=== PATIENT | male | born 1950 | race Caucasian/White ===

== ENCOUNTER 2017-04-28 06:00 | Day surgery (SDC) | payer OTHER ==
[2017-04-27 11:41] VITALS: BMI 32.8
[2017-04-28] MEDS ORDERED: MIDAZOLAM HCL 2 MG/2 ML SINGLE DOSE VIAL ONE (07:11)
[2017-04-28] MEDS ORDERED: ROCURONIUM BROMIDE 50 MG/5 ML VIAL ONE (07:11)
[2017-04-28] MEDS ORDERED: PROPOFOL 20 ML ONE (07:11)
[2017-04-28] MEDS ORDERED: LIDOCAINE 1%/EPI 1:100000 (20 ML MULTI DOSE VIAL) ONE (07:32)
[2017-04-28] MEDS ORDERED: SUCCINYLCHOLINE CHLORIDE 200 MG/10 ML VIAL ONE (07:39)
[2017-04-28] MEDS ORDERED: ceFAZolin SODIUM 1 GM VIAL ONE (07:54)
[2017-04-28] MEDS ORDERED: LIDOCAINE 1%/EPI 1:100000 (20 ML MULTI DOSE VIAL) INF ONE ×2 (08:03)
[2017-04-28] MEDS ORDERED: DESFLURANE GAS 240 ML BOTTLE IH ONE (08:18)
[2017-04-28] MEDS ORDERED: ePHEDrine SULFATE 50 MG/1 ML AMPULE ONE (08:30)
[2017-04-28] MEDS ORDERED: ONDANSETRON 4 MG/2 ML VIAL ONE (08:35)
[2017-04-28] MEDS ORDERED: DEXAMETHASONE SOD PHOSPHATE 4 MG/1 ML VIAL ONE (08:35)
[2017-04-28] MEDS ORDERED: BACITRACIN 15 GM TUBE TOPICAL OINTMENT ONE (08:38)
[2017-04-28] MEDS ORDERED: GELATIN, ABSORBABLE 100 EACH SPONGE TP ONE (09:44)
[2017-04-28] MEDS ORDERED: ONDANSETRON 4 MG/2 ML VIAL IVPUSH PRN (10:29)
[2017-04-28] MEDS ORDERED: LACTATED RINGERS SOLUTION 1,000 ML IV SCH ×2 (10:30→10:45)
[2017-04-28] MEDS ORDERED: oxyCODONE HCL 5 MG TABLET PO PRN (10:38)
[2017-04-28] MEDS ORDERED: ONDANSETRON 4 MG/2 ML VIAL IVPB PRN (10:38)
--- NOTE | 2017-04-28 10:42 | OP ---
Operative Note - Note: Operative Date: 04/28/17 Pre-Operative Diagnosis: nasal defect Operation: nasal reconstruction with forehead flap Post-Operative Diagnosis: Same as Pre-op Surgeon: Issa Alvarado Anesthesia: General Estimated Blood Loss (mls): 10 Operative Report Dictated: Yes
[2017-04-28] MEDS ORDERED: oxyCODONE HCL 5 MG TABLET ONE ×2 (12:04→14:13)
[2017-04-28] MEDS: oxyCODONE HCL 5 MG TABLET PO PRN ×2 (12:10→14:15)
[2017-04-28 13:22] VITALS: TEMP 97.8
--- NOTE | 2017-04-28 15:27 | OP ---
DATE OF OPERATION: 04/28/2017 TITLE OF PROCEDURE: Forehead flap nasal reconstruction of defect on central nose with excision of existing defect in preparation of forehead flap reconstruction. The procedure is done under general endotracheal anesthesia. Patient is marked in the holding area, awake and aware of incisions and resulting scars. PREOPERATIVE DIAGNOSIS: Central nasal defect status post Mohs excision of basal cell carcinoma. POSTOPERATIVE DIAGNOSIS: Central nasal defect status post Mohs excision of basal cell carcinoma. The patient counseled on all risks, benefits, and alternatives to the procedure, understands and agrees to proceed. DESCRIPTION OF PROCEDURE: Brought to the operating room, placed in supine position. Position is carefully checked by surgical and anesthesia teams. A gram of Ancef was given preoperatively. Sequential compression stockings and JOAQUIN nose are applied. Patient is prepped and draped in standard surgical fashion. After general anesthesia is given, position is carefully checked by surgical and anesthesia teams. A timeout is called. Patient, procedure, site, and side are verified. A total of 15 mL of 1% lidocaine with 1:100,000 epinephrine is injected to the surrounding perioperative tissues including the nose and the donor site. Prior to that, a Doppler is used to determine the better supratrochlear artery on which to base the flap. This was seen very decidedly better on the right side. The flap is based as a paramedian axial flap on the right side of the forehead. The procedure commences with incision surrounding the borders of the flap. The distal 2 cm of the flap are elevated in a subcutaneous plane and transitioned into a subgaleal plane for the central third of the flap. At the level of 2 cm superior to the orbital rim, a freer elevator is used, and subperiosteal dissection is continued to the level of the superior orbital rim. The flap is mobilized to the tip of the nose and is determined to have adequate tolerance of the repositioning without signs of congestion or ischemia. With the flap temporarily tailor tacked in position, the donor site is closed by a series of interrupted, buried, full-thickness 3-0 Monocryl suture including dermis and frontalis muscle. The skin is then closed with a running 5-0 nylon suture. All skin is pink and viable. An adequate space is allowed for the base pedicle of the flap. At this point, with the flap having been positioned for several minutes, there is no sign of congestion or ischemia, and decision is made to convert the defect into a full nasal subunit defect, excising the remainder of the tip skin. The flap is then inset with a series of interrupted 5-0 nylon suture, tolerating well, and the undersurface of the flap is then dressed with Surgicel and thrombin Gelfoam. The tip is pink and viable with good capillary refill at the end of the procedure. Patient is dressed with bacitracin and Xeroform, 4 x 4 gauze. Head is elevated, awoke from anesthesia, transferred to recovery without complication. BURKE ESCUDERO M.D. [id number]
[2017-04-28 17:13] VITALS: BP 140/74; PULSE 75
== END 2017-04-28 14:40 | disposition home or self-care (01) ==
LOC: FASU 06:00
PROVIDERS: ATTEND Plastic Surgery
PROC: 0HX1XZZ Transfer Face Skin, External Approach (ICD-10-PCS; principal; 2017-04-28 08:27)
DX: C44.311 Basal cell carcinoma of skin of nose (principal); M95.0 Acquired deformity of nose
CPT/HCPCS: 82962; 94760

== ENCOUNTER 2017-05-25 06:12 | Day surgery (SDC) | payer OTHER ==
[2017-05-19 15:02] VITALS: BMI 32.8
[2017-05-25] MEDS ORDERED: ONDANSETRON 4 MG/2 ML VIAL ONE (07:10)
[2017-05-25] MEDS ORDERED: LIDOCAINE HCL/EPINEPHRINE/PF 20 ML VIAL ONE (07:10)
[2017-05-25] MEDS ORDERED: ceFAZolin SODIUM 1 GM VIAL ONE (07:10)
[2017-05-25] MEDS ORDERED: ePHEDrine SULFATE 50 MG/1 ML AMPULE ONE (07:12)
[2017-05-25] MEDS ORDERED: SUCCINYLCHOLINE CHLORIDE 200 MG/10 ML VIAL ONE (07:12)
[2017-05-25] MEDS ORDERED: fentaNYL CITRATE 250 MCG/5 ML VIAL ONE (07:12)
[2017-05-25] MEDS ORDERED: PROPOFOL 20 ML ONE ×2 (07:12)
[2017-05-25] MEDS ORDERED: MIDAZOLAM HCL 2 MG/2 ML SINGLE DOSE VIAL ONE (07:13)
[2017-05-25] MEDS ORDERED: ROCURONIUM BROMIDE 50 MG/5 ML VIAL ONE ×2 (07:13)
[2017-05-25] MEDS ORDERED: ACETAMINOPHEN INJECTION 100 ML IVPB ONE (07:57)
[2017-05-25] MEDS ORDERED: BACITRACIN 15 GM TUBE TOPICAL OINTMENT ONE (09:48)
[2017-05-25] MEDS ORDERED: BSS (NA/CA/MG/K) BALANCED SALT SOLUTION OPHTH SOLN 15 ML BOTTLE ONE (09:50)
[2017-05-25] MEDS ORDERED: NITROGLYCERIN 2% OINTMENT - 1GM PACKET TD ONE (09:51)
[2017-05-25] MEDS ORDERED: oxyCODONE HCL 5 MG TABLET PO PRN ×3 (10:10→10:13)
[2017-05-25] MEDS ORDERED: ONDANSETRON 4 MG/2 ML VIAL IVPUSH PRN (10:10)
[2017-05-25] MEDS ORDERED: PROMETHAZINE HCL 25 MG/1 ML VIAL IVPB PRN (10:10)
[2017-05-25] MEDS ORDERED: ONDANSETRON 4 MG/2 ML VIAL IVPB PRN (10:13)
[2017-05-25] MEDS ORDERED: LACTATED RINGERS SOLUTION 1,000 ML IV SCH ×2 (10:15)
--- NOTE | 2017-05-25 10:17 | OP ---
Operative Note - Note: Operative Date: 05/25/17 Pre-Operative Diagnosis: basal cell carcinoma to nose Operation: division and inset of forehead flap to nose Findings: above Post-Operative Diagnosis: Same as Pre-op Surgeon: Issa Alvarado Anesthesia: General Drains & Tubes with Location: jimmie x 1 Operative Report Dictated: Yes
[2017-05-25 11:10] VITALS: TEMP 97.7
[2017-05-25] MEDS ORDERED: oxyCODONE HCL 5 MG TABLET ONE (11:25)
[2017-05-25 12:05] VITALS: BP 112/77; PULSE 72
--- NOTE | 2017-05-25 21:06 | OP ---
DATE OF OPERATION: 05/25/2017 TITLE OF PROCEDURE: Division and inset of forehead flap for nasal reconstruction. ATTENDING SURGEON: Burke Escudero MD ANESTHESIA: General anesthesia with laryngeal mask airway. ANESTHESIOLOGIST: Alberto Decker MD PREOPERATIVE DIAGNOSIS: Basal cell carcinoma to the nose status post first-stage forehead flap reconstruction of nose. POSTOPERATIVE DIAGNOSIS: Basal cell carcinoma to the nose status post first-stage forehead flap reconstruction of nose. Patient was seen in the holding area, marked of the appropriate side. Risks, benefits, and alternatives to the procedure discussed, understood, agreed to proceed. DESCRIPTION OF PROCEDURE: He is then brought to the operating room, placed in a supine position. After given anesthesia, he is prepped and draped in standard surgical fashion. The patient's position is carefully checked by surgical and anesthesia teams. Sequential compression stockings are applied. He is given 2 g of Ancef preoperatively. The operative sites are injected with a total of 8.5 mL of 2% lidocaine with 1:100,000 epinephrine. After waiting 10 minutes for the anesthetic and hemostatic effect of the local anesthetic, procedure commences. The forehead flap is divided at appropriate point, and the proximal portion of the flap on the forehead is then addressed. It is thinned. Hemostasis is achieved. The defect is re-created. Defect is debrided of granulation tissue. Skin edges are slightly undermined. The muscle layer is approximated with a series of interrupted 4-0 Biosyn suture. The skin edges of the proximal segment of the flap are then trimmed to conform to the defect on the forehead and then inset with a running 6-0 nylon suture. Attention is then directed toward the distal end of the flap on the patient's nose. This portion of the flap is thinned and entirely unfurled. After completing this, a full 3 minutes is awaited to assess the perfusion of this flap prior to sacrificing any additional tissue on the nose. Tissues are irrigated with warm saline, and assessment is made that the flap is well perfused without undue congestion or ischemia. At this point, the residual of the nasal dorsal aesthetic subunit is excised down to the level of periosteum. Hemostasis is achieved. Skin edges are slightly undermined on the area of this new defect. The flap is thinned of any residual muscle, and an even contour is achieved. The forehead flap is then contoured to the new defect on the patient's nasal dorsum and is then inset with a series of interrupted 6-0 nylon suture. A small custom-fitted [place] drain is brought out through the superior-most extent of the inset. The flap appears pink and viable at the end of this procedure. Prophylactically as is routine now, a pack of nitroglycerin paste is used on this newly-inset segment of the flap. Xeroform and 2 x 2 gauze are applied. Patient is awoken from anesthesia, having tolerated the procedure well, transferred to Recovery without complication. BURKE ESCUDERO M.D. [id number]
== END 2017-05-25 12:15 | disposition home or self-care (01) ==
LOC: FASU 06:12
PROVIDERS: ATTEND Plastic Surgery
PROC: 0H81XZZ Division of Face Skin, External Approach (ICD-10-PCS; principal; 2017-05-25 08:39)
DX: C44.311 Basal cell carcinoma of skin of nose (principal)
CPT/HCPCS: 82962; 94760